=== PATIENT | male | born 1995 | race Caucasian/White ===

== ENCOUNTER 2017-03-01 15:16 | Emergency (ER) | payer SELFPAY ==
[2017-03-01 15:21] VITALS: BP 165/83; BMI 28.5
--- NOTE | 2017-03-01 15:34 | DR.GENAD ---
HPI - PCP Primary Care Physician: none - Complaint/Symptoms Chief Complaint Doctors Comments: Patient denies trauma or heavy lifting. He denies penile discharge . Chief Complaint:: three days ago pt started having pain around scrotum now it's swelling on the left side - Source History Provided: Patient - Mode of Arrival Mode of Arrival: Ambulatory - Timing Onset of Chief Complaint: 02/27/17 PMH - PMH Past Medical History: No Past Surgical History: No - Family History History of Family Medical Conditions: Yes Family Medical History: Diabetes Mellitus, Cancer, Heart Failure, Hypertension - Social History Does patient currently use any type of tobacco product: Yes Have you used tobacco products in the last 12 months: Yes Type of Tobacco Use: Cigarettes How many years tobacco product used: 3 Does any household member use tobacco: No Alcohol Use: Rarely Do you use any recreational Drugs:: No Lives With: Family Lives Where: Home - infectious screening In the last 2 months have you had wt loss of >10#?: NO Have you had fever, night sweats or hemotysis?: No Have you traveled outside the country in the last 6 months?: No Isolation: Standard ROS - Review of Systems Eyes: No Symptoms Reported ENTM: No Symptoms Reported Respiratoy: No Symptoms Reported Cardiovascular: No Symptoms Reported Gastrointestinal/Abdominal: No Symptoms Reported Genitourinary: No Symptoms Reported Neurological: No Symptoms Reported Musculoskeletal: No Symptoms Reported Integumentary: No Symptoms Reported Hematologic/Lymphatic: No Symptoms Reported Endocrine: No Symptoms Reported PE - Vital Signs Vitals: Temperature 99.1 F Pulse Rate 99 Respiratory Rate 18 Blood Pressure 165/83 O2 Sat by Pulse Oximetry 100 - General Limitations: No Limitations General Appearance: Alert, In No Apparent Distress - Head Head Exam: Normal Inspection, Atraumatic - Eyes Eye exam: Normal Appearance, PERRL, EOMI - ENT ENT Exam: Normal Exam External Ear Exam: Normal External Inspection TM/Canal Exam: Bilateral Normal Nose Exam: Normal Nose Exam Mouth Exam: Normal Inspection Throat Exam: Normal Inspection - Neck Neck Exam: Normal Inspection - Chest Chest Inspection: Normal Inspection - Respiratory Respiratory Exam: Normal Lung Sounds Bilat Respiratory Exam: Bilateral Clear to Auscultation - Cardiovascular Cardiovascular Exam: Regular Rate, Normal Rhythm - Abdominal Exam Abdominal Exam: Normal Inspection, Normal Bowel Sounds Abdominal Tenderness: negative: RUQ, RLQ, LUQ, LLQ, Epigastrium, Suprapubic, Diffuse, Mild, Moderate, Severe, Other - Extremities Extremities Exam: Normal Inspection, Full ROM - Back Back Exam: Normal Inspection - Neurologic Neurological Exam: Alert, Oriented X3, CN II-XII Intact - Psychiatric Psychiatric Exam: Normal Affect, Normal Mood - Skin Skin Exam: Warm, Dry, Intact - Other Exam Other Exam: Left testes slightly tender non erythematous, pain not relieved by elevation. Course - Treatment Treatment: Ceftriaxone 250mg IM - Diagnosis Discharge Problem: Epididymal pain - Discharge Plan Condition: Stable - Follow ups/Referrals Follow ups/Referrals: [facility],None [Primary Care Provider] - 3 days - Instructions
--- NOTE | 2017-03-01 16:40 | US ---
Testicular ultrasound Indication: Left-sided testicular pain. Denies injury. Comparison: None Technique: Sonographic images of the testicles were obtained per protocol. Findings: The right testicle is 4.0 x 1.8 x 3.2 cm and demonstrates normal echotexture without testic ular or extratesticular mass. There is trace hydrocele. The left testicle is 4.5 x 1.6 x 2.4 cm and demonstrates normal echotexture without testicular or ext ratesticular mass. There is trace hydrocele. Color and spectral flow was demonstrated bilaterally. There is asymmetrically increased epididymal an d testicular color flow on the left. Impression: Left-sided hyperemia suggesting epididymo-orchitis. Trace bilateral hydroceles. Reported By:
[2017-03-01] MEDS ORDERED: ROCEPHIN VIAL 250 MG IM ONE (16:45)
[2017-03-01] MEDS ORDERED: ROCEPHIN VIAL 250 MG ONE (16:47)
== END 2017-03-01 16:53 | disposition home or self-care (01) ==
LOC: ER 15:23
DX: N50.812 Left testicular pain (principal); N43.2 Other hydrocele; R68.89 Other general symptoms and signs
CPT/HCPCS: 76870; 96372; 99282; J0696